=== PATIENT | male | born 1995 | race Caucasian/White ===

== ENCOUNTER 2021-03-17 17:46 | Emergency (ER) | payer OTHER ==
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
[2021-03-17 20:16] VITALS: TEMP 98.1; O2SAT 100
[2021-03-17 20:18] VITALS: BP 128/80
[2021-03-17] MEDS ORDERED: KETOROLAC 30 MG/ML INJ ONE (20:29)
== END 2021-03-17 20:22 | disposition home or self-care (01) ==
LOC: ER 17:46
DX: R51.9 Headache, unspecified (principal); W22.03XA Walked into furniture, initial encounter; Y92.814 Boat as the place of occurrence of the external cause; Y99.8 Other external cause status
CPT/HCPCS: 70450; 72125; 96372; 99284